=== PATIENT | male | born 1985 | race American Indian/Alaskan Native ===

== ENCOUNTER 2022-03-20 10:09 | Emergency (ER) | payer SELFPAY ==
[2022-03-20] MEDS ORDERED: ONDANSETRON 4 MG/2 ML INJ IV ONE (11:47)
[2022-03-20] MEDS ORDERED: SODIUM CHLORIDE 0.9% 1000 ML 1,000 ML IV ONE (11:47)
[2022-03-20] MEDS ORDERED: MORPHINE 2 MG/1 ML INJ IV ONE (11:47)
--- NOTE | 2022-03-20 11:51 | Emergency Department Report ---
ED General Adult HPI - General Chief complaint: Abdominal Pain Stated complaint: LEFT SIDE ABD PAIN PUI?: No Time Seen by Provider: 03/20/22 10:18 Source: patient, EMS Mode of arrival: Stretcher Limitations: No Limitations - History of Present Illness Initial comments: 35-year-old HIV male who denies any other medical conditions or surgical history came in today with concerns of left-sided abdominal pain and also left flank di scomfort since this morning. According to patient is a sharp constant sensation that does not fluctuate up and down. Since this pain started patient has vomited about 4 times. Patient denies any other symptoms. Patient current denies fever chill night sweat dizziness blurred vision lightheadedness headache tinnitus ear pain runny nose sore throat loss of taste loss of smell chest pain palpitation short breath cough diarrhea constipation dysuria myalgia arthralgia new rash and heat or cold intolerance. Severity scale (0 -10): 5 - Related Data Previous Rx's Medication Instructions Recorded Last Taken Type Ketorolac [Toradol] 10 mg PO Q6H PRN #9 03/20/22 Unknown Rx Tamsulosin [Flomax] 0.4 mg PO QDAY 30 Days #30 cap 03/20/22 Unknown Rx Allergies Allergy/AdvReac Type Severity Reaction Status Date / Time No Known Allergies Allergy Unverified 03/20/22 10:16 ED Review of Systems ROS: Stated complaint: LEFT SIDE ABD PAIN Other details as noted in HPI Comment: All other systems reviewed and negative Constitutional: no symptoms reported Eyes: as per HPI ENT: as per HPI Respiratory: no symptoms reported, see HPI Cardiovascular: as per HPI Endocrine: no symptoms reported, see HPI Gastrointestinal: abdominal pain, nausea, vomiting. denies: diarrhea, constipation, hematemesis, melena, hematochezia Musculoskeletal: as per HPI Skin: as per HPI Neurological: as per HPI Psychiatric: as per HPI Hematological/Lymphatic: as per HPI ED Past Medical Hx - Past Medical History Previous Medical History?: Yes Hx Diabetes: Yes (borderline) Hx HIV: Yes - Surgical History Additional Surgical History: hemorrhoid - Medications Home Medications: Home Medications Medication Instructions Recorded Confirmed Last Taken Type Ketorolac [Toradol] 10 mg PO Q6H PRN #9 03/20/22 Unknown Rx Tamsulosin [Flomax] 0.4 mg PO QDAY 30 Days #30 cap 03/20/22 Unknown Rx ED Physical Exam - General Limitations: No Limitations General appearance: alert, in distress (MILD; WALKING AROUND IN DISCOMFORT) - Head Head exam: Present: atraumatic, normocephalic, normal inspection - Eye Eye exam: Present: normal appearance, PERRL, EOMI Pupils: Present: normal accommodation - ENT ENT exam: Present: normal exam, mucous membranes moist - Neck Neck exam: Present: normal inspection, full ROM - Respiratory Respiratory exam: Present: normal lung sounds bilaterally - Cardiovascular Cardiovascular Exam: Present: regular rate, normal rhythm, normal heart sounds - GI/Abdominal GI/Abdominal exam: Present: soft, normal bowel sounds. Absent: distended, tenderness (NO WORSENING OF TENDERNESS ON PALPATION OR REBOUND TENDERNESS), guarding, rebound, rigid - Extremities Exam Extremities exam: Present: normal inspection, full ROM, normal capillary refill - Back Exam Back exam: Present: normal inspection, full ROM - Neurological Exam Neurological exam: Present: alert, oriented X3, CN II-XII intact - Psychiatric Psychiatric exam: Present: normal affect, normal mood - Skin Skin exam: Present: normal color ED Course Vital Signs 03/20/22 10:13 Temperature 98.1 F Pulse Rate 84 Respiratory 16 Rate Blood Pressure 124/80 [Left] O2 Sat by Pulse 98 Oximetry ED Medical Decision Making - Lab Data Result diagrams: 03/20/22 11:52 03/20/22 11:52 Critical care attestation.: If time is entered above; I have spent that time in minutes in the direct care of this critically ill patient, excluding procedure time. ED Disposition Clinical Impression: Nephrolithiasis Disposition: 01 HOME / SELF CARE / HOMELESS Is pt being admited?: No Does the pt Need Aspirin: No Condition: Stable Instructions: Kidney Stones, [id number] Additional Instructions: Take medication as prescribed for you and make a follow-up appoint with primary care. To be seen within 3 days for further outpatient evaluation. Prescriptions: Tamsulosin [Flomax] 0.4 mg PO QDAY 30 Days #30 cap Ketorolac [Toradol] 10 mg PO Q6H PRN #9 PRN Reason: Pain Referrals: PRIMARY CARE,MD [Primary Care Provider] - 3-5 Days Time of Disposition: 13:40
[2022-03-20 12:32] LABS: Hematocrit 42.6 % (35.5-45.6); Hemoglobin 13.4 gm/dl (11.8-15.2); Mean Corpuscular HGB Conc 32 % (32-34); Mean Corpuscular Volume 76 fl (84-94); Platelet Count 411 K/mm3 (140-440); Red Blood Count 5.64 M/mm3 (3.65-5.03); Red Cell Distribution Width 15.6 % (13.2-15.2)
[2022-03-20 12:34] LABS: Alanine Aminotransferase 16 units/L (7-56); Albumin 4.6 g/dL (3.9-5); BUN/Creatinine Ratio 14; Blood Urea Nitrogen 11 mg/dL (9-20); Calcium 10.2 mg/dL (8.4-10.2); Hemolysis Index 83
--- NOTE | 2022-03-20 13:13 | Cat Scan Report ---
CT ABDOMEN AND PELVIS WITH CONTRAST INDICATION / CLINICAL INFORMATION: left lower quadratn/side pain. TECHNIQUE: Axial CT images were obtained through the abdomen and pelvis after 100 cc of Omnipaque 350 IV contras t. Sagittal and coronal reformatted images. All CT scans at this location are performed using CT dose reduction for ALARA by means of automated exposure control. COMPARISON: None available. FINDINGS: LOWER CHEST: No significant abnormality. LIVER: The liver is mildly enlarged with mild fatty infiltration. GALLBLADDER: No significant abnormality. BILE DUCTS: No significant abnormality. PANCREAS: No significant abnormality. SPLEEN: No significant abnormality. ADRENALS: No significant abnormality. RIGHT KIDNEY and URETER: No significant abnormality. LEFT KIDNEY and URETER: A 4.3 mm calculus is identified in the distal left ureter resulting in mild l eft hydronephrosis. 3 mm calyceal stone in the inferior left kidney. STOMACH and SMALL BOWEL: No significant abnormality. COLON: No significant abnormality. APPENDIX: No significant abnormality. PERITONEUM: No free fluid. No free air. No fluid collection. LYMPH NODES: No significant adenopathy. AORTA and ARTERIES: No significant abnormality. IVC and VEINS: No significant abnormality. URINARY BLADDER: No significant abnormality. REPRODUCTIVE ORGANS: No significant abnormality. ADDITIONAL FINDINGS: None. SKELETAL SYSTEM: No significant abnormality. IMPRESSION: 4.3 mm calculus in the distal left ureter, mildly obstructing. 3 mm left renal calyceal stone. Mild hepatomegaly with steatosis. Signer Name: Sixto Espinosa Jr, MD Signed: 03/20/2022 1:09 PM Workstation Name: [id number]
[2022-03-20] MEDS ORDERED: KETOROLAC 30 MG/1 ML INJ IV ONE (13:30)
[2022-03-20] MEDS ORDERED: TAMSULOSIN 0.4 MG CAP PO ONE (13:31)
[2022-03-20 16:44] VITALS: BP 128/96
== END 2022-03-20 16:45 | disposition home or self-care (01) ==
LOC: ED 10:09
DX: N20.0 Calculus of kidney (principal); E11.9 Type 2 diabetes mellitus without complications; Z79.899 Other long term (current) drug therapy
CPT/HCPCS: 36415; 74177; 80053; 83690; 83735; 85027; 96361; 96374; 96375; 99284; J1885; J2270; J2405; J7030; Q9967